=== PATIENT | female | born 1955 | race Caucasian/White ===

== ENCOUNTER → 2017-11-25 12:04 | Outpatient (CLI) | payer OTHER, SELFPAY ==
--- NOTE | 2017-11-25 | DI.MG.S_ITS ---
UNILATERAL LEFT DIGITAL SCREENING MAMMOGRAM 3D/2D WITH CAD: 11/25/2017 CLINICAL: Routine screening. Personal history of breast cancer. Family history of breast cancer. Comparison is made to exams dated: 10/25/2016 mammogram, 10/20/2015 mammogram, and 09/02/2014 mammogram - [facility]. The tissue of the left breast is heterogeneously dense. This may lower the sensitivity of mammography. Current study was also evaluated with a Computer Aided Detection (CAD) system. No significant masses, calcifications, or other findings are seen in the breast. There has been no significant interval change. IMPRESSION: NEGATIVE There is no mammographic evidence of malignancy. A 1 year screening mammogram is recommended. This exam was interpreted at Station ID: [id number]. NOTE: For mammograms, a report in lay terms will be sent to the patient. Approximately 15% of breast malignancies will not be visualized mammographically. In the management of a palpable breast mass, a negative mammogram must not discourage biopsy of a clinically suspicious lesion. Electronically Signed By: Humberto perry/sonali:11/25/2017 16:30:21 letter sent: Normal Exam ACR BI-RADS Category 1: Negative 3341F
== END ==
PROVIDERS: PCP Family Medicine Geriatric Medicine; Visit Provider Family Medicine Geriatric Medicine
DX: Z12.31 Encounter for screening mammogram for malignant neoplasm of breast (principal); Z85.3 Personal history of malignant neoplasm of breast; Z80.3 Family history of malignant neoplasm of breast
CPT/HCPCS: 77063; 77065

== ENCOUNTER → 2018-12-04 11:53 | Outpatient (CLI) | payer OTHER, SELFPAY ==
--- NOTE | 2018-12-04 | DI.MG.S_ITS ---
UNILATERAL LEFT DIGITAL SCREENING MAMMOGRAM 3D/2D WITH CAD POST MASTECTOMY: 12/04/2018 CLINICAL: Routine screening. Personal history of right breast cancer. Post right mastectomy. Family history of breast cancer. Comparison is made to exams dated: 11/25/2017 mammogram, 10/25/2016 mammogram, and 10/20/2015 mammogram - [facility]. The tissue of left breast is heterogeneously dense. This may lower the sensitivity of mammography. Current study was also evaluated with a Computer Aided Detection (CAD) system. No significant masses, calcifications, or other findings are seen in the breast. There has been no significant interval change. IMPRESSION: NEGATIVE There is no mammographic evidence of malignancy. A 1 year screening mammogram is recommended. This exam was interpreted at Station ID: [id number]. NOTE: For mammograms, a report in lay terms will be sent to the patient. Approximately 15% of breast malignancies will not be visualized mammographically. In the management of a palpable breast mass, a negative mammogram must not discourage biopsy of a clinically suspicious lesion. Electronically Signed By: Shelia villasenor/sonali:12/04/2018 20:31:01 letter sent: Normal Exam ACR BI-RADS Category 1: Negative 3341F
== END ==
PROVIDERS: PCP Family Medicine Geriatric Medicine; Visit Provider Family Medicine Geriatric Medicine
DX: Z12.31 Encounter for screening mammogram for malignant neoplasm of breast (principal); Z85.3 Personal history of malignant neoplasm of breast; Z80.3 Family history of malignant neoplasm of breast; Z90.11 Acquired absence of right breast and nipple
CPT/HCPCS: 77063; 77067

== ENCOUNTER → 2020-01-14 12:36 | Outpatient (CLI) | payer MEDICARE, SELFPAY ==
--- NOTE | 2020-01-14 | DI.MG.S_ITS ---
UNILATERAL LEFT DIGITAL SCREENING MAMMOGRAM 3D/2D WITH CAD POST MASTECTOMY: 01/14/2020 CLINICAL: Routine screening. Personal history of right breast cancer. Family history of breast cancer. Comparison is made to exams dated: 12/04/2018 mammogram, 11/25/2017 mammogram, and 10/25/2016 mammogram - [facility]. The tissue of left breast is heterogeneously dense. This may lower the sensitivity of mammography. Current study was also evaluated with a Computer Aided Detection (CAD) system. There is a new 6 mm asymmetry with obscured margins in the left breast middle depth medial region seen on the craniocaudal view (theo slice 28) 6 cm from the nipple. There is possible architectural distortion associated with the asymmetry. IMPRESSION: INCOMPLETE: NEEDS ADDITIONAL IMAGING EVALUATION New asymmetry and possible associated architectural distortion in the left breast. Diagnostic mammogram and ultrasound recommended. This exam was interpreted at Station ID: [id number]. NOTE: For mammograms, a report in lay terms will be sent to the patient. Approximately 15% of breast malignancies will not be visualized mammographically. In the management of a palpable breast mass, a negative mammogram must not discourage biopsy of a clinically suspicious lesion. Electronically Signed By: Jori Carpenter M.D. jr/:01/14/2020 13:01:08 letter sent: Additional Imaging Needed ACR BI-RADS Category 0: Incomplete 3340F
== END ==
PROVIDERS: PCP Physician Assistant Medical; Referring Provider Physician Assistant Medical; Visit Provider Physician Assistant Medical
DX: Z12.31 Encounter for screening mammogram for malignant neoplasm of breast (principal); Z85.3 Personal history of malignant neoplasm of breast; Z80.3 Family history of malignant neoplasm of breast
CPT/HCPCS: 77063; 77067

== ENCOUNTER → 2020-02-01 14:17 | Outpatient (CLI) | payer MEDICARE, SELFPAY ==
--- NOTE | 2020-02-01 | DI.US.S_ITS ---
ULTRASOUND OF LEFT BREAST AND AXILLA: 02/01/2020 CLINICAL: Patient returns today to evaluate asymmetry in left breast. Comparison is made to exams dated: 02/01/2020 mammogram, 01/14/2020 mammogram, 12/04/2018 mammogram, 11/25/2017 mammogram, 10/25/2016 mammogram, and 10/20/2015 mammogram - [facility]. Color flow and real-time ultrasound of the left breast axilla were performed. [place] scale images of the real-time examination were reviewed. No significant abnormalities were seen sonographically in the left axilla. No abnormalities were identified in the left breast. IMPRESSION: SUSPICIOUS OF MALIGNANCY There is no abnormality seen in the left breast to correspond with the mammography finding. However, the craniocaudal view-only finding remains suspicious of malignancy and further evaluation with stereotactic guided breast biopsy is recommended. Findings and recommendations were discussed with the patient by Dr. Carbajal during today's evaluation. This exam was interpreted at Station ID: [id number]. Electronically Signed By: Adithya Santiago M.D. at/:02/01/2020 16:14:32 letter sent: Biopsy Required Ultrasound BI-RADS: 4 Suspicious for malignancy
--- NOTE | 2020-02-01 | DI.MG.S_ITS ---
UNILATERAL LEFT DIGITAL DIAGNOSTIC MAMMOGRAM 3D/2D WITH ADDITIONAL VIEWS POST MASTECTOMY: 02/01/2020 CLINICAL: Additional evaluation requested from prior study. Comparison is made to exams dated: 01/14/2020 mammogram, 12/04/2018 mammogram, and 11/25/2017 mammogram - [facility]. The tissue of left breast is heterogeneously dense. This may lower the sensitivity of mammography. Redemonstration of the 0.5 cm asymmetry with an obscured margin in the left breast middle depth medial region (likely lower, inner quadrant) seen on the craniocaudal view only. This confirmed in additional views. This is not significantly changed from recent screening mammogram but new from previous studies. There is possible mild architectural distortion associated with the asymmetry. No other significant masses or calcifications are seen in the breast. IMPRESSION: INCOMPLETE: NEEDS ADDITIONAL IMAGING EVALUATION The 0.5 cm asymmetry in the left breast is indeterminate. An ultrasound is recommended for further evaluation and is scheduled to immediately follow this study. This exam was interpreted at Station ID: [id number]. NOTE: For mammograms, a report in lay terms will be sent to the patient. Approximately 15% of breast malignancies will not be visualized mammographically. In the management of a palpable breast mass, a negative mammogram must not discourage biopsy of a clinically suspicious lesion. Electronically Signed By: Adithya Santiago M.D. aty/:02/01/2020 15:02:48 ACR BI-RADS Category 0: Incomplete 3340F
== END ==
PROVIDERS: PCP Physician Assistant Medical; Referring Provider Physician Assistant Medical; Visit Provider Physician Assistant Medical
DX: R92.8 Other abnormal and inconclusive findings on diagnostic imaging of breast (principal); N64.89 Other specified disorders of breast
CPT/HCPCS: 76642; 77065; G0279